=== PATIENT | male | born 1995 | race Caucasian/White ===

== ENCOUNTER 2016-08-19 22:33 | Emergency (ER) | payer OTHER ==
[~2016-08-19] VITALS: Ht 185.4 cm; Wt 74.8 kg
[~2016-08-19 22:33] MED LIST: CLARITIN10 MG PO; KENALOG0.1% TP; MEDROL DOSEPAK4 MG PO
[2016-08-20] MEDS ORDERED: CEPHALEXIN500 M1 PO (18:58)
[2016-08-20] MEDS ORDERED: BACTRIM DS 8001 TA1 PO (18:58)
== END 2016-08-19 23:26 | disposition home or self-care (01) ==
LOC: ED 22:33
DX: L02.416 Cutaneous abscess of left lower limb (principal)

== ENCOUNTER 2016-08-29 23:52 | Emergency (ER) | payer OTHER ==
[~2016-08-29] VITALS: Ht 185.4 cm; Wt 77.1 kg
[~2016-08-29 23:52] MED LIST changes: +BACTRIM DS 8001 TA1 PO; +CEPHALEXIN500 M1 PO
[2016-08-30] MEDS ORDERED: PREDNISONE10 MG PO (00:16)
== END 2016-08-30 00:19 | disposition home or self-care (01) ==
LOC: ED 23:52
DX: L23.7 Allergic contact dermatitis due to plants, except food (principal)

== ENCOUNTER 2016-12-15 19:42 | Emergency (ER) | payer OTHER ==
[~2016-12-15] VITALS: Ht 185.4 cm; Wt 74.8 kg
[~2016-12-15 19:42] MED LIST changes: +PREDNISONE10 MG PO
[2016-12-15] MEDS ORDERED: SALINE NASAL M126 ML NAS (21:10)
== END 2016-12-15 21:14 | disposition home or self-care (01) ==
LOC: ED 19:42
DX: R04.0 Epistaxis (principal)

== ENCOUNTER 2017-09-11 23:51 | Emergency (ER) | payer SELFPAY ==
[~2017-09-11] VITALS: Wt 77.1 kg
[~2017-09-11 23:51] MED LIST changes: +SALINE NASAL M126 ML NAS
[2017-09-12] MEDS ORDERED: PREDNISONE10 MG PO (00:03)
== END 2017-09-12 00:30 | disposition home or self-care (01) ==
LOC: ED 23:51
DX: L23.7 Allergic contact dermatitis due to plants, except food (principal)

== ENCOUNTER → 2018-10-15 | Outpatient (CLI) | payer OTHER | END | disposition home or self-care (01) | LOC: MRI 10-07 09:00 | DX: M47.817 Spondylosis without myelopathy or radiculopathy, lumbosacral region (principal); M17.12 Unilateral primary osteoarthritis, left knee; M51.37 Other intervertebral disc degeneration, lumbosacral region; M51.27 Other intervertebral disc displacement, lumbosacral region ==

== ENCOUNTER → 2021-02-20 | Outpatient (CLI) | payer OTHER ==
[2021-02-20 23:24] LABS: BASO # 0.1 10*3/uL (0.0-0.1); BASO % 0.8 % (0.0-1.0); EOS # 0.1 10*3/uL (0.0-0.4); EOS % 1.5 % (1.0-4.0); HEMATOCRIT 43.5 % (42.0-52.0); LYMPH # 2.6 10*3/uL (1.3-4.4); LYMPH % 28.1 % (27.0-41.0); MEAN CELL VOLUME 84.1 fl (80.0-94.0); MEAN CORPUSCULAR HGB 30.2 pg (27.0-31.0); MEAN CORPUSCULAR HGB CONC 35.9 g/dl (33.0-37.0); MONO # 0.7 10*3/uL (0.1-1.0); MONO % 7.5 % (3.0-9.0); NEUT # 5.7 10*3/uL (2.3-7.9); NEUT % 61.9 % (47.0-73.0); PLATELET COUNT AUTOMATED 170 10*3/uL (130-400); RED BLOOD COUNT 5.17 10*6/uL (4.50-5.90); RED CELL DISTRI WIDTH 12.2 % (0-14.5); WHITE BLOOD COUNT 9.1 10*3/uL (4.8-10.8)
[2021-02-20 23:28] LABS: ALBUMIN 3.8 gm/dl (3.1-4.5); ALKALINE PHOSPHATASE 67 U/L (45-117); BUN 11 mg/dl (7-24); CHLORIDE 109 mmol/L (98-107); CHOLESTEROL 143 mg/dL (<200); CREATININE 1.26 mg/dL (0.70-1.30); GAMMA GLUTAMYL TRANSPEPTIDASE 12 U/L (15-85); LDL CHOLESTEROL 45 mg/dL (9-159); SGOT/AST 18 IU/L (3-35); SGPT/ALT 25 U/L (12-78); SODIUM 139 mmol/L (136-145); THYROXINE (T4) TOTAL 8.2 ug/dl (4.5-12.1); TOTAL PROTEIN 7.2 gm/dL (6.4-8.2); TRIGLYCERIDES 151 mg/dl (<150); URIC ACID 4.3 mg/dL (3.5-7.2)
[2021-02-20 23:30] LABS: BILIRUBIN Negative (Negative); BLOOD Negative (Negative); CLARITY Clear (Clear); COLOR Yellow (Yellow); GLUCOSE Negative (Negative); KETONE Trace (Negative); LEUKO ESTERASE Negative (Negative); NITRITE Negative (Negative); SPECIFIC GRAVITY 1.025 (1.001-1.030)
[2021-02-21 00:03] LABS: WBC 0-2 wbc/hpf (0-5)
[2021-02-21 00:32] LABS: VITAMIN D, 25-HYDROXY 18.9 ng/mL (30-100)
[2021-02-21 06:01] LABS: RETICULOCYTE % 1.48 % (0.50-2.50)
[2021-02-21 06:20] LABS: IRON 111 ug/dL (65-175); T3 UPTAKE 35 % (31-39)
[2021-02-21 06:22] LABS: TOTAL IRON BINDING CAPACITY 292 ug/dl (250-450)
[2021-02-22 05:06] LABS: HEP B CORE AB, IGM Negative (Negative); HEPATITIS B SURFACE AG Negative (Negative); HEPATITIS C VIRUS ANTIBODY 0.1 s/co (0.0-0.9); RHEUMATOID ARTHRITIS FACTOR <10.0 IU/mL (<14.0)
[2021-02-22 13:06] LABS: ANTI-DSDNA ANTIBODIES <1 IU/mL (0-9)
== END | disposition home or self-care (01) ==
LOC: LAB 22:36
PROVIDERS: ATTEND Family Medicine
DX: E78.5 Hyperlipidemia, unspecified (principal); R79.89 Other specified abnormal findings of blood chemistry; R53.83 Other fatigue; E55.9 Vitamin D deficiency, unspecified

== ENCOUNTER → 2024-06-03 | Outpatient (CLI) | payer OTHER ==
[2024-06-03 18:24] LABS: BASO # 0.1 10*3/uL (0.0-0.1); BASO % 0.7 % (0.0-1.0); EOS # 0.1 10*3/uL (0.0-0.4); EOS % 1.6 % (1.0-4.0); HEMATOCRIT 45.3 % (42.0-52.0); MEAN CELL VOLUME 87.5 fl (80.0-94.0); MEAN CORPUSCULAR HGB 29.7 pg (27.0-31.0); MEAN PLATELET VOLUME 9.4 fl (9.6-12.3); MONO # 0.6 10*3/uL (0.1-1.0); MONO % 7.3 % (3.0-9.0); NEUT # 4.6 10*3/uL (2.3-7.9); NEUT % 56.9 % (47.0-73.0); PLATELET COUNT AUTOMATED 178 10*3/uL (130-400); RED BLOOD COUNT 5.18 10*6/uL (4.50-5.90); RED CELL DISTRI WIDTH 12.4 % (0-14.5); RETICULOCYTE % 1.45 % (0.50-2.50); WHITE BLOOD COUNT 8.1 10*3/uL (4.8-10.8)
[2024-06-03 18:26] LABS: BILIRUBIN Negative (Negative); BLOOD Negative (Negative); CLARITY Clear (Clear); COLOR Yellow (Yellow); GLUCOSE Negative (Negative); KETONE Negative (Negative); LEUKO ESTERASE Negative (Negative); NITRITE Negative (Negative); PH 7.5 (4.5-8.0); SPECIFIC GRAVITY 1.025 (1.001-1.030); UROBILINOGEN 0.2 E.U./dl (0.0-1.0)
[2024-06-03 18:49] LABS: ALKALINE PHOSPHATASE 60 U/L (46-116); BACTERIA 1+; BUN 20 mg/dl (9-23); CHLORIDE 105 mmol/L (98-107); CHOLESTEROL 147 mg/dL (<200); GAMMA GLUTAMYL TRANSPEPTIDASE 18 U/L (0-73); HYALINE CAST 0-2; LDL CHOLESTEROL 68 mg/dL (9-159); SGPT/ALT 32 U/L (5-49); TOTAL PROTEIN 7.5 gm/dL (6.0-8.0); TRIGLYCERIDES 60 mg/dl (<150); URIC ACID 4.4 mg/dL (3.7-9.2); WBC 0-2 wbc/hpf (0-5)
[2024-06-03 19:04] LABS: VITAMIN D, 25-HYDROXY 57.7 ng/mL (30-100)
[2024-06-04 08:08] LABS: HBsAG SCREEN Negative (Negative); HCV Ab Non Reactive (Non Reactive); HEP B CORE Ab, IgM Negative (Negative)
[2024-06-06 08:06] LABS: ANTI-DSDNA ANTIBODIES <1 IU/mL (0-9)
== END | disposition home or self-care (01) ==
LOC: LAB 17:48
PROVIDERS: ATTEND Family Medicine
DX: R79.89 Other specified abnormal findings of blood chemistry (principal); R53.83 Other fatigue; E78.5 Hyperlipidemia, unspecified; M25.50 Pain in unspecified joint; E55.9 Vitamin D deficiency, unspecified